=== PATIENT | female | born 1990 | race Two or more races ===

== ENCOUNTER 2016-12-22 02:31 | Emergency (ER) | payer SELFPAY ==
[~2016-12-22] VITALS: Ht 154.9 cm; Wt 68.0 kg
--- NOTE | ~2016-12-22 | CT2 ---
[facility] A Service of [facility] RADIOLOGY TEXT RESULTS PATIENT: SELAM CRAWFORD LOCATION: [facility] : 88 UNIT #: [id number] AGE: [address]: Jackelyn Leal APRN SEX: F ORDER DR: [id number] [facility]. [place], [place] [address] [id number] E MR#: [id number] Acc #: [id number] NAME: SELAM CRAWFORD. : 1990 SEX: F STUDY DATE/TIME: 12/22/2016 4:49 UNIT: [facility] ROOM: STUDY DESCRIPTION: CT Abd and Pelv W Cont Attending Physician: Jackelyn Leal A.P.R.N. Ordering Physician: Jackelyn Leal A.P.R.N. Primary Care Physician: [facility] IMAGING REPORT This report is preliminary unless electronic signature is present EXAM CT abdomen and pelvis with contrast, 12/22/2016 HISTORY 26-year-old female in the ED complaining of new onset right upper quadrant abdomen pain and nausea beginning earlier tonight. TECHNIQUE CT examination of the abdomen and pelvis with IV contrast. GI contrast was not ordered. This CT exam was performed with one or more of the following radiation dose reduction techniques: automatic exposure control, adjustment of mA and/or kV according to patient size, and iterative reconstruction. FINDINGS ABDOMEN FINDINGS: Dense heterogeneous material is present within the gallbladder, AND there is gallbladder wall thickening and diffuse mucosal enhancement. The findings suggest cholelithiasis and possible cholecystitis. Followup gallbladder ultrasound examination is recommended for further characterization. There is no intrahepatic or extrahepatic bile duct dilatation. No evidence of acute pancreatitis. The liver, spleen and kidneys are normal in size and appearance. Small bowel and colon are normal in caliber and appearance, as imaged. The appendix is normal. PELVIS FINDINGS: 4.0 cm right ovary cyst, likely physiologic. Uterus, left ovary, urinary bladder and rectum are within normal limits. IMPRESSION 1. Abnormal gallbladder. Dense amorphous material within the gallbladder likely representing cholelithiasis. There is prominent [facility] A Service of [facility] & [facility] RADIOLOGY TEXT RESULTS PATIENT: SELAM CRAWFORD [id number] : [birth year] UNIT #: [id number] AGE: [address]: Jackelyn Leal APRN SEX: F ORDER DR: gallbladder wall enhancement and probable gallbladder wall thickening. Followup gallbladder ultrasound examination is recommended for further characterization. No bile duct dilatation 2. 4.0 cm right ovary cyst, likely physiologic. 3. Remainder of the examination is negative. Normal appendix. Dictated by... Mateo Neri M.D. THIS IS AN ELECTRONICALLY VERIFIED REPORT Mateo Neri M.D. at 12/22/2016 9:53 PM Miesha TD: 12/22/2016 10:13 JOB #: [id number] MEDICAL IMAGING REPORT Page 1 of 1 COPY
[~2016-12-22 02:31] MED LIST: BENTYL10 MG PO; FAMOTIDINE PO; PHENERGAN25 M1 PO
[2016-12-22 03:07] LABS: URINE SOURCE CLEAN CATCH
[2016-12-22 03:11] LABS: URINE APPEARANCE CLEAR; URINE BILIRUBIN NEG (NEG); URINE BLOOD TRACE (NEG); URINE COLOR YELLOW; URINE GLUCOSE NEG (NEG); URINE KETONE NEG (NEG); URINE LEUKOCYTE ESTERASE TRACE (NEG); URINE NITRATE NEG (NEG); URINE PH 7.5 (5-8); URINE PROTEIN NEG (NEG); URINE SPECIFIC GRAVITY 1.016 (1.003-1.035); URINE UROBILINOGEN 0.2 MG/DL (NEG)
[2016-12-22 03:14] LABS: CULTURE INDICATED? YES; URINE BACTERIA AUWI 2+ (NEGATIVE); URINE SQUAMOUS EPITHELIAL CELL OCC /[HPF]
[2016-12-22 04:12] LABS: BASOPHIL# 0.1 X10e3 (0-0.3); BASOPHIL% 0.5 % (0-2.5); EOSINOPHIL# 0.4 X10e3 (0-0.7); HEMATOCRIT 36.8 % (35.0-45.0); HEMOGLOBIN 12.5 gm/dL (12.0-16.0); LYMPHOCYTE# 3.2 X10e3 (1.0-3.5); LYMPHOCYTE% 29.2 % (17.0-45.0); MEAN CELL VOLUME 86.6 FL (83-96); MEAN CORPUSCULAR HEMOGLOBIN 29.5 PG (28-34); MEAN CORPUSCULAR HGB CONC 34.1 g/dL (30-36); MEAN PLATELET VOLUME 6.9 FL (6.5-11.5); MONOCYTE# 0.7 X10e3 (0-1.0); MONOCYTE% 6.8 % (3.0-12.0); NEUTROPHIL# 6.5 X10e3 (1.5-7.1); NEUTROPHIL% 59.5 % (40-75); PLATELET COUNT 285 X10e3 (140-420); RED BLOOD COUNT 4.25 X10e (3.90-5.30); RED CELL DISTRIBUTION WIDTH 13.9 % (11.0-15.5); WHITE BLOOD COUNT 10.9 X10e3 (4.0-10.5)
[2016-12-22 04:16] LABS: DIFF IND NO
[2016-12-22 04:31] LABS: ALBUMIN SERUM 3.9 g/dL (3.5-5.0); ALKALINE PHOSPHATASE 69 U/L (32-92); ALT (SGPT) 16 U/L (10-40); AMYLASE 21 U/L (0-46); AST (SGOT) 15 U/L (10-42); BILIRUBIN,TOTAL 0.3 mg/dL (0.2-2.0); BLOOD UREA NITROGEN 15 mg/dL (9-23); BUN/CREATININE RATIO 21.42; CALCIUM SERUM 8.8 mg/dL (8.4-10.2); CARBON DIOXIDE 26 mmol/L (22-31); CHLORIDE 102 mmol/L (100-111); CREATININE SERUM 0.7 mg/dL (0.6-1.4); GLOM FILT RATE Estimated 118.7 mL/min (>60); GLUCOSE FASTING 97 mg/dL (70-110); LIPASE 21 U/L (22-51); PROTEIN TOTAL SERUM 7.2 g/dL (6.0-8.3); SODIUM 135 mmol/L (135-145)
[2016-12-22 04:42] LABS: BILIRUBIN, DIRECT <0.1 mg/dL (0.0-0.2); BILIRUBIN,INDIRECT 0.2 mg/dL (0.0-0.9)
== END 2016-12-22 06:25 | disposition home or self-care (01) ==
LOC: CED 02:31
DX: K80.50 Calculus of bile duct without cholangitis or cholecystitis without obstruction (principal); Z79.899 Other long term (current) drug therapy
CPT/HCPCS: 36415; 74177; 80048; 80076; 81003; 82150; 83690; 84703; 85025; 87086; 96361; 96374; 96375; 99284; J1885; J2405; Q9967